=== PATIENT | female | born 1955 | race Caucasian/White ===

== ENCOUNTER → 2019-12-15 | Day surgery (SDC) | payer MEDICARE, MEDICAID ==
[~2019-12-15] VITALS: Ht 165.1 cm; Wt 109.1 kg
[~2019-12-15] MED LIST: ASPI-728 PO; ATOR40TA71 PO; CHOL100018 PO; CLOP75TA3 PO; FURO40 PO; LAMO100 PO; LEVO50 PO; LIDOCAINE 1% 10 ML VIAL IM ONE; LOSA25TA71 PO; MULT1CAP32 PO; PROPOFOL 1% 20 ML VIAL IVP ONE; QUET200T PO; SODIUM CHLORIDE 0.9% 1,000 ML IV ONE; SODIUM CHLORIDE 0.9% 1,000 ML ONE; TRAZ150 PO; ZOLP5 PO
== END | disposition home or self-care (01) ==
LOC: SURGERY 11:44 → EDSTATUS 14:00
PROVIDERS: ATTEND Student in an Organized Health Care Education/Training Program
DX: R11.2 Nausea with vomiting, unspecified (principal); R10.9 Unspecified abdominal pain; R12 Heartburn; K20.8 Other esophagitis; K44.9 Diaphragmatic hernia without obstruction or gangrene; K25.9 Gastric ulcer, unspecified as acute or chronic, without hemorrhage or perforation; G47.33 Obstructive sleep apnea (adult) (pediatric); I11.9 Hypertensive heart disease without heart failure; F31.9 Bipolar disorder, unspecified; G89.29 Other chronic pain; E03.9 Hypothyroidism, unspecified; I73.9 Peripheral vascular disease, unspecified; Z86.73 Personal history of transient ischemic attack (TIA), and cerebral infarction without residual deficits; Z79.899 Other long term (current) drug therapy; Z88.0 Allergy status to penicillin; Z79.01 Long term (current) use of anticoagulants; Z90.710 Acquired absence of both cervix and uterus; Z90.49 Acquired absence of other specified parts of digestive tract; Z87.891 Personal history of nicotine dependence; Z82.49 Family history of ischemic heart disease and other diseases of the circulatory system
CPT/HCPCS: 43239; 88305; 88312; 88313; C1769; J2704; J3490; J7030